=== PATIENT | male | born 1975 | race Caucasian/White ===

== ENCOUNTER 2019-11-02 19:41 | Emergency (ER) | payer SELFPAY ==
[2019-11-02 19:47] VITALS: BP 162/107; PULSE 102; RESP 16; TEMP 36.4; O2SAT 97; BMI 39.4
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
[2019-11-02 20:01] VITALS: RESP 18
[2019-11-02] MEDS: oxyCODONE-APAP 5-325 mg Tablet 2 TAB PO (20:01)
[2019-11-02] MEDS: ketorolac 60 mg/2 mL INJ IM (20:02)
[2019-11-02 21:13] VITALS: BP 149/97; PULSE 82; RESP 18; O2SAT 95
== END 2019-11-02 21:42 | disposition home or self-care (01) ==
PROVIDERS: Emergency Provider Emergency Medicine
DX: S02.2XXA Fracture of nasal bones, initial encounter for closed fracture (principal); S01.01XA Laceration without foreign body of scalp, initial encounter; Y04.2XXA Assault by strike against or bumped into by another person, initial encounter; F17.200 Nicotine dependence, unspecified, uncomplicated
CPT/HCPCS: 12345; 70450; 70486; 96372; 99281; 99283; J1885

== ENCOUNTER 2020-10-25 14:52 | Outpatient (CLI) | payer SELFPAY ==
--- NOTE | 2020-10-25 15:08 | XRR_ITS ---
PROCEDURE INFORMATION: Exam: XR Abdomen Exam date and time: 10/25/2020 3:09 PM Age: 45 years old Clinical indication: Bloating; Prior surgery; Surgery type: Hernia, appy; Patient HX: Abd pain, swollen, tight, SOB, constipation; Additional info: Abd bloating TECHNIQUE: Imaging protocol: XR of the abdomen. Views: Frontal supine view of the abdomen. 1 View. COMPARISON: No relevant prior studies available. FINDINGS: Gastrointestinal tract: In the left abdomen, there are several loops of air-filled small bowel which are mildly prominent, measuring up to 2.9 cm. No mural thickening is seen. The visualized colon is normal in caliber. Intraperitoneal space: No free air detected. Organs: There is evidence of left nephrolithiasis. Bones/joints: Unremarkable. XR/XR abdomen 1V* [id number] IMPRESSION: 1. Mildly prominent loops of small bowel in the left abdomen, may reflect ileus or early obstruction. 2. No free air detected. 3. Left nephrolithiasis.
== END 2020-10-25 14:53 | disposition home or self-care (01) ==
LOC: RAD 14:56
PROVIDERS: Visit Provider Family Medicine
DX: R14.0 Abdominal distension (gaseous) (principal); N20.0 Calculus of kidney
CPT/HCPCS: 74018